=== PATIENT | male | born 1985 | race Caucasian/White ===

== ENCOUNTER 2021-06-16 17:32 | Inpatient (IN) ==
[2021-06-16 17:41] VITALS: BP 120/94
[2021-06-16] MEDS ORDERED: SODIUM CHLORIDE 0.9% 1,000 ML IV STA ×2 (19:31→22:20)
[2021-06-16] MEDS ORDERED: ONDANSETRON 4 MG/2 ML VIAL IV STA (19:31)
[2021-06-16] MEDS ORDERED: PROCHLORPERAZINE 10 MG/2 ML VIAL IV ONE (20:23)
[2021-06-16] MEDS ORDERED: PROCHLORPERAZINE 10 MG/2 ML VIAL ONE (20:24)
[2021-06-16] MEDS ORDERED: INSULIN REGULAR 100 UNIT/ML IV STA (20:27)
[2021-06-16 20:41] LABS: ABG Base Excess -9.7 MMOL/L (-2.5-2.5); ABG HCO3 15.1 MMOL/L (20-26); ABG Oxygen Saturation 95.9 % (95-100); ABG PCO2 30.8 MM HG (35-48); ABG PH 7.309 (7.35-7.45); ABG PO2 85.5 MM HG (80-95); ABG TCO2 16.1 MMOL/L (23-27)
[2021-06-16 20:42] LABS: Basophils % 0.2 % (0.0-0.8); Eosinophils % 0.1 % (0.00-10.9); Hematocrit 45.6 VOL% (42.0-52.0); Hemoglobin 14.6 GM/DL (14.0-18.0); Immature Granulocytes % 0.5 %; Immature Granulocytes Absolute 0.08 #; Lymphocytes # 1.1 10*3/uL (1.4-4.0); Mean Platelet Volume 12.5 FL (9.6-12.0); Monocytes % 1.7 % (1.7-12.7); Neutrophils % 90.5 % (38.7-73.9); Platelet Count 149 T/CUMM (130-400); Red Blood Count 4.85 MC/CUMM (3.8-5.5); Red Cell Distribution Width 12.6 % (9.3-17.3); White Blood Count 15.6 T/CUMM (4-12)
[2021-06-16 21:03] LABS: Bilirubin,Total 0.8 MG/DL (0.20-1.00); Calcium 9.1 MG/DL (8.5-10.1); Osmolality,Calculated 292.1 MOS/KG (273-304); Potassium 5.1 MMOL/L (3.5-5.1); Total Protein 7.3 G/DL (6.4-8.2)
[2021-06-16] MEDS ORDERED: INSULIN REGULAR DRIP 100 ML IV PRN (21:18)
[2021-06-16 22:39] LABS: Bilirubin,Urine Negative (Negative); Blood, Urine Negative (Negative); Glucose,Urine (UA) >=500 mg/dL (Negative); Ketones,Urine 80 mg/dL (Negative); Mucus,Urine Occasional /LPF (Occasional); Nitrite,Urine Negative (Negative); Protein,Urine Negative; RBC,Urine 1 /HPF (0-4); Urine Appearance CLEAR (Clear); Urine Color Straw (Yellow); Urine Specific Gravity 1.025 (1.001-1.035); Urine Urobilinogen < 2.0 EU/DL (0.2-1.0)
[2021-06-16 22:50] LABS: Barbiturates Screen,Urine Negative (Negative); Benzodiazepines Screen,Urine Negative (Negative); Cannabinoid Screen,Urine Negative (Negative); Opiate Screen,Urine Negative (Negative); Phencyclidine Screen,Urine Negative (Negative)
[2021-06-17] MEDS ORDERED: SODIUM CHLORIDE 0.9% 1,000 ML IV SCH ×5 (00:07→11:30)
[2021-06-17 01:22] LABS: Hemoglobin 13.6 GM/DL (14.0-18.0); Mean Corpuscular Volume 91.6 FL (87-102)
[2021-06-17 01:31] LABS: Hematocrit 41.6 VOL% (42.0-52.0); Mean Corpuscular HGB Conc 32.7 GM/DL (32-36); Mean Platelet Volume 11.9 FL (9.6-12.0); Platelet Count 181 T/CUMM (130-400); Red Blood Count 4.54 MC/CUMM (3.8-5.5); Red Cell Distribution Width 12.8 % (9.3-17.3); White Blood Count 13.7 T/CUMM (4-12)
[2021-06-17] MEDS ORDERED: DEXTROSE 50% 25 GM/50 ML VIAL IV PRN ×4 (01:51→16:31)
[2021-06-17] MEDS ORDERED: SODIUM CHLORIDE 0.9% 1,000 ML IV ONE (01:51)
[2021-06-17] MEDS ORDERED: SODIUM CHLORIDE 0.9% IV PRN (01:51)
[2021-06-17] MEDS ORDERED: POTASSIUM CHLORIDE RIDER 10 MEQ/100 ML PREMIX IV PRN (01:51)
[2021-06-17] MEDS ORDERED: SODIUM BICARB INJ 100 MEQ in STERILE WATER INJ 400 ML IV PRN ×2 (01:51→06:06)
[2021-06-17] MEDS ORDERED: INSULIN REGULAR DRIP 100 ML IV SCH ×2 (01:51→06:30)
[2021-06-17] MEDS ORDERED: MAGNESIUM SULF RIDER 2 GM/50 ML PREMIX IV PRN (01:51)
[2021-06-17] MEDS ORDERED: SODIUM PHOSPHATE IV PRN (01:51)
[2021-06-17] MEDS ORDERED: INSULIN REGULAR 100 UNIT/ML IV ONE ×2 (01:51→06:06)
[2021-06-17] MEDS ORDERED: GLUCAGON 1 MG VIAL IM PRN ×2 (01:51→16:31)
[2021-06-17] MEDS ORDERED: MAGNESIUM SULF RIDER 4 GM/100 ML PREMIX IV PRN (01:51)
[2021-06-17] MEDS ORDERED: DEXTROSE 5% NACL 0.9% 1,000 ML IV SCH (02:00)
[2021-06-17 02:10] LABS: Calcium 8.8 MG/DL (8.5-10.1); Osmolality,Calculated 281.4 MOS/KG (273-304); Potassium 3.9 MMOL/L (3.5-5.1)
[2021-06-17] MEDS: ENOXAPARIN 40 MG/0.4 ML SYRINGE SUBCUT SCH (02:41)
[2021-06-17 05:30] LABS: Basophils # 0.1 10*3/uL (0.0-0.2); Basophils % 0.2 % (0.0-0.8); Hemoglobin 13.2 GM/DL (14.0-18.0); Immature Granulocytes % 0.6 %; Immature Granulocytes Absolute 0.14 #; Lymphocytes # 1.3 10*3/uL (1.4-4.0); Lymphocytes % 5.7 % (21.2-54.2); Mean Platelet Volume 11.8 FL (9.6-12.0); Monocytes % 7.7 % (1.7-12.7); Neutrophils % 85.8 % (38.7-73.9); Platelet Count 169 T/CUMM (130-400); Red Cell Distribution Width 12.8 % (9.3-17.3); White Blood Count 21.9 T/CUMM (4-12)
[2021-06-17 05:52] LABS: Calcium 8.5 MG/DL (8.5-10.1); Potassium 4.5 MMOL/L (3.5-5.1)
[2021-06-17] MEDS: ACETAMINOPHEN 325 MG TABLET PO PRN ×2 (05:56→12:10)
[2021-06-17] MEDS ORDERED: SODIUM PHOSPHATE INJ 15.9 MMOL in SODIUM CHLORIDE 0.9% 250 ML IV PRN (06:06)
[2021-06-17 06:48] LABS: Lymphocytes 8 % (20-55); Platelet Estimate Adequate; Polychromasia Slight; Segmented Neutrophils 90 % (50-85); Total Cells Counted 100
[2021-06-17] MEDS: INSULIN LISPRO 100 UNIT/ML SUBCUT SCH ×4 (08:30→21:12)
[2021-06-17] MEDS: SODIUM CHLORIDE 0.9% 1,000 ML IV SCH ×2 (09:37→13:40)
[2021-06-17] MEDS: glyBURIDE 5 MG TABLET PO SCH ×2 (09:43→21:11)
[2021-06-17] MEDS: buPROPion XL 150 MG TABLET PO SCH (09:43)
[2021-06-17] MEDS: POLYETHYLENE GLYCOL POWDER 17 GM PACK PO SCH (09:44)
[2021-06-17] MEDS: INSULIN NPH/REGULAR 70/30 100 UNIT/ML SUBCUT SCH (16:19)
[2021-06-17] MEDS ORDERED: SODIUM CHLORIDE 0.45% 1,000 ML IV SCH ×2 (16:30→23:30)
[2021-06-17] MEDS ORDERED: GABAPENTIN 300 MG CAPSULE PO SCH (21:00)
[2021-06-18] MEDS: ENOXAPARIN 40 MG/0.4 ML SYRINGE SUBCUT SCH (01:13)
[2021-06-18 06:29] LABS: Basophils % 0.4 % (0.0-0.8); Eosinophils # 0.1 10*3/uL (0.0-0.87); Eosinophils % 0.8 % (0.00-10.9); Hematocrit 39.9 VOL% (42.0-52.0); Immature Granulocytes % 0.3 %; Immature Granulocytes Absolute 0.03 #; Lymphocytes # 1.3 10*3/uL (1.4-4.0); Lymphocytes % 13.4 % (21.2-54.2); Mean Corpuscular HGB Conc 32.6 GM/DL (32-36); Mean Platelet Volume 11.7 FL (9.6-12.0); Monocytes % 7.4 % (1.7-12.7); Neutrophils % 77.7 % (38.7-73.9); Platelet Count 139 T/CUMM (130-400); Red Blood Count 4.29 MC/CUMM (3.8-5.5); Red Cell Distribution Width 12.7 % (9.3-17.3); White Blood Count 9.9 T/CUMM (4-12)
[2021-06-18 06:58] LABS: Calcium 8.2 MG/DL (8.5-10.1); Osmolality,Calculated 282.1 MOS/KG (273-304); Potassium 4.1 MMOL/L (3.5-5.1); Risk Ratio 3.98; VLDL Cholesterol 39.4 MG/DL
[2021-06-18] MEDS: buPROPion XL 150 MG TABLET PO SCH (08:37)
[2021-06-18] MEDS: glyBURIDE 5 MG TABLET PO SCH (08:37)
[2021-06-18] MEDS: INSULIN LISPRO 100 UNIT/ML SUBCUT SCH ×2 (08:38→12:22)
[2021-06-18] MEDS: INSULIN NPH/REGULAR 70/30 100 UNIT/ML SUBCUT SCH (08:38)
[2021-06-18] MEDS: POLYETHYLENE GLYCOL POWDER 17 GM PACK PO SCH (09:08)
== END 2021-06-18 14:25 | disposition home or self-care (01) | DRG 639 ==
LOC: N.ED 17:32 → SUATTDRO 06-17 00:08 → N.EDINP 06-17 00:08 → N.CC 06-17 01:12
PROVIDERS: ADMIT Internal Medicine; ATTEND Internal Medicine